=== PATIENT | female | born 1995 | race Caucasian/White ===

== ENCOUNTER 2016-06-07 17:22 | Emergency (ER) | payer MEDICAID, OTHER ==
[~2016-06-07 17:22] MED LIST: CIPR0.3S RIGHT EAR; DRYS20SO TOP; FLUC150T PO; FLUO10TA PO; LEXA10TA PO; SPRI28TA PO; VITA-13 PO; ZITH250T PO
[2016-06-07 18:00] VITALS: BP 119/73; PULSE 71; RESP 18; TEMP 98.7; O2SAT 99
[2016-06-07] MEDS ORDERED: LAMO25 PO (18:57)
[2016-06-07 19:05] LABS: BLOOD, URINE NEG (NEG); COMMENT (UR) CULTURE INDICATED; CULTURE IF INDICATED CULTURE INDICATED; GLUCOSE,URINE NEG (NEG); KETONE, URINE TRACE mg/dL (NEG); MUCUS URINE MANY /lpf (OCC); NITRITE,URINE NEG (NEG); PH, URINE 6.5 (5.0-8.5); SQUAMOUS EPITHELIAL CELL URINE 3 /hpf (0-5); URINE COLOR YELLOW (YELLW/STRAW)
[2016-06-07 19:13] LABS: AUTOMATED NEUTROPHIL # 2.2 TH/MM3 (1.8-7.7); EOSINOPHIL # 0.1 TH/MM3 (0-0.4); EOSINOPHIL % 1.9 % (0.0-4.0); HEMATOCRIT 37.4 % (35.0-46.0); HEMO FLAGS DIFF FINAL; LYMPH % 37.8 % (9.0-44.0); LYMPHOCYTE # 1.7 TH/MM3 (1.0-4.8); MEAN CELL VOLUME 92.5 FL (80.0-100.0); MEAN CORPUSCULAR HEMOGLOBIN 31.1 PG (27.0-34.0); MEAN CORPUSCULAR HGB CONC 33.7 % (32.0-36.0); MONO % 10.2 % (0.0-8.0); NEUT % 49.1 % (16.0-70.0); PLATELET COUNT 221 TH/MM3 (150-450); RED BLOOD COUNT 4.04 MIL/MM3 (4.00-5.30); RED CELL DISTRIBUTION WIDTH 13.1 % (11.6-17.2); WHITE BLOOD COUNT 4.5 TH/MM3 (4.0-11.0)
[2016-06-07 19:28] LABS: ALT (GPT) 15 U/L (9-42); ANION GAP 7 MEQ/L (5-15); AST (GOT) 11 U/L (16-38); BICARBONATE 26.5 MEQ/L (21.0-32.0); BLOOD UREA NITROGEN 8 MG/DL (7-18); CHLORIDE 107 MEQ/L (98-107); GLOMERULAR FILTRATION RATE 76 ML/MIN (>89); POTASSIUM 3.8 MEQ/L (3.5-5.1); SODIUM (NA) 140 MEQ/L (136-145)
[2016-06-07 19:31] LABS: ALKALINE PHOSPHATASE 51 U/L (45-117); TOTAL BILIRUBIN ADULT 0.5 MG/DL (0.2-1.0)
[2016-06-07 19:49] LABS: AMPHETAMINE, URINE NEG (NEG); BARBITURATES, URINE NEG (NEG); COCAINE, URINE NEG (NEG)
[2016-06-07] MEDS ORDERED: CEPH-460 PO (19:59)
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
[2016-06-07 20:45] VITALS: BP 121/84; PULSE 68; RESP 19; O2SAT 100
[2016-06-07] MEDS ORDERED: diphenhydrAMINE HCL 50 MG CAP PO ONE (21:45)
[2016-06-08 02:06] VITALS: BP 104/50; PULSE 62; RESP 18; O2SAT 98
[2016-06-08 06:00] VITALS: BP 99/54; PULSE 56; RESP 17; O2SAT 99
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
== END 2016-06-08 08:10 | disposition home or self-care (01) ==
LOC: NEDAMB 17:22 → NEPJ 06-08 08:10
DX: N39.0 Urinary tract infection, site not specified (principal); R56.9 Unspecified convulsions
CPT/HCPCS: 80053; 80307; 81001; 84703; 85025; 87086; 99284; Q0163

== ENCOUNTER 2017-03-30 19:14 | Emergency (ER) | payer MEDICAID, OTHER ==
[~2017-03-30] VITALS: Ht 172.7 cm; Wt 61.0 kg
[~2017-03-30 19:14] MED LIST changes: +CEPH-460 PO; -CIPR0.3S RIGHT EAR; -DRYS20SO TOP; -FLUC150T PO; -FLUO10TA PO; +LAMO25 PO; -LEXA10TA PO; -SPRI28TA PO; -VITA-13 PO; -ZITH250T PO
[2017-03-30 19:16] VITALS: BP 103/55; PULSE 77; RESP 16; TEMP 97.8; O2SAT 98
--- NOTE | 2017-03-30 21:40 | PD ---
HPI Chief Complaint: Related Problem Time Seen by Provider: 21:28 Travel History International Travel<30 days: No Contact w/Intl Traveler<30days: No Traveled to known affect area: No History of Present Illness HPI 22-year-old white female 1 para 0 with a approximately 8 week . Patient's last menstrual period was 02/05/17. Patient presents with complaints of lower abdominal cramping with brown vaginal discharge. Patient also reports having increased urinary frequency. Patient reports her pain no exacerbating or alleviating factors. A /10. She denies any fever chills, cough, congestion, dysuria, or changes in bowel habit. PFSH Past Medical History Diminished Hearing: No Neurologic: Yes (SEIZURES) Seizures: Yes (Pt denies) Tetanus Vaccination: Unknown Influenza Vaccination: No ?: LMP: 02/05/2017 : 1 Para: 0 Past Surgical History Surgical History: No Previous Surgery Social History Alcohol Use: No Tobacco Use: No Substance Use: No Allergies-Medications (Allergen,Severity, Reaction): Coded Allergies: tramadol (Verified Allergy, Unknown, Hives, 03/30/17) Reported Meds & Prescriptions Reported Meds & Active Scripts Active No Active Prescriptions or Reported Medications Review of Systems Except as stated in HPI: all other systems reviewed are Neg Physical Exam Narrative GENERAL: Well-developed, well-nourished in no apparent distress. Nontoxic appearing. HEAD: Normocephalic, atraumatic. EYES: Pupils equal round and reactive. Extraocular motions intact. No scleral icterus. No injection or drainage. ENT: Nose clear. Throat without erythema, tonsillar hypertrophy or exudate. Uvula midline. Airway patent. NECK: Trachea midline. Supple, nontender, moves head freely. No central bony tenderness or spasm. CARDIOVASCULAR: Regular rate and rhythm without murmurs, gallops, or rubs. RESPIRATORY: Clear to auscultation. Breath sounds equal bilaterally. No wheezes , rales, or rhonchi. GASTROINTESTINAL: Abdomen soft, non-tender, nondistended. No hepato-splenomegaly , or palpable masses. No guarding. EXTREMITIES: No clubbing, cyanosis, or edema. No joint tenderness. BACK: Nontender without deformity. No flank tenderness. NEUROLOGICAL: Awake, alert and oriented x 3 .Cranial nerves grossly intact. Motor and sensory grossly within normal limits. Normal speech. Data Data Last Documented VS Vital Signs Date Time Temp Pulse Resp B/P (MAP) Pulse Ox O2 Delivery O2 Flow Rate FiO2 03/30/17 19:16 97.8 77 16 103/55 (71) 98 Orders Orders Beta Hcg (Quant/Titer) (03/30/17 21:33) Complete Blood Count With Diff (03/30/17 21:33) Basic Metabolic Panel (Bmp) (03/30/17 21:33) Gc And Chlamydia Pcr (03/30/17 21:33) Wet Prep Profile (03/30/17 21:33) Urinalysis - C+S If Indicated (03/30/17 21:33) Iv Access Insert/Monitor (03/30/17 21:33) Azithromycin Powd Pack (Zithromax Powd P (03/30/17 21:45) Ceftriaxone Inj (Rocephin Inj) (03/30/17 21:45) Lidocaine 1% Inj (50 Ml) (Xylocaine 1% I (03/30/17 21:45) Complete Rh (03/30/17 21:33) Ed Urine Pregnancytest Poc (03/30/17 22:19) Us Pelvis (Ques Pr/Ect)W Trans (03/30/17 ) Labs Laboratory Tests Test 03/30/17 22:25 03/30/17 23:15 03/31/17 00:13 Urine Color YELLOW Urine Turbidity CLEAR Urine pH 6.5 Urine Specific [place] 1.028 Urine Protein TRACE mg/dL Urine Glucose (UA) NEG mg/dL Urine Ketones NEG mg/dL Urine Occult Blood NEG Urine Nitrite NEG Urine Bilirubin NEG Urine Urobilinogen 2.0 MG/DL Urine Leukocyte Esterase NEG Urine RBC 1 /hpf Urine WBC 1 /hpf Urine Squamous Epithelial Cells 3 /hpf Microscopic Urinalysis Comment CULT NOT INDICATED White Blood Count 9.5 TH/MM3 Red Blood Count 3.96 MIL/MM3 Hemoglobin 12.5 GM/DL Hematocrit 36.6 % Mean Corpuscular Volume 92.4 FL Mean Corpuscular Hemoglobin 31.6 PG Mean Corpuscular Hemoglobin Concent 34.2 % Red Cell Distribution Width 13.0 % Platelet Count 205 TH/MM3 Mean Platelet Volume 8.3 FL Neutrophils (%) (Auto) 61.1 % Lymphocytes (%) (Auto) 27.0 % Monocytes (%) (Auto) 9.0 % Eosinophils (%) (Auto) 2.4 % Basophils (%) (Auto) 0.5 % Neutrophils # (Auto) 5.8 TH/MM3 Lymphocytes # (Auto) 2.6 TH/MM3 Monocytes # (Auto) 0.9 TH/MM3 Eosinophils # (Auto) 0.2 TH/MM3 Basophils # (Auto) 0.0 TH/MM3 CBC Comment DIFF FINAL Differential Comment Blood Urea Nitrogen 10 MG/DL Creatinine 0.56 MG/DL Random Glucose 86 MG/DL Calcium Level 8.0 MG/DL Sodium Level 137 MEQ/L Potassium Level 3.7 MEQ/L Chloride Level 105 MEQ/L Carbon Dioxide Level 26.9 MEQ/L Anion Gap 5 MEQ/L Estimat Glomerular Filtration Rate 137 ML/MIN Human Chorionic Gonadotropin, Quant 56641 MIU/ML Clue Cells (Wet Prep) NONE SEEN Vaginal Trichomonas (Wet Prep) NONE SEEN Vaginal Yeast (Wet Prep) NONE SEEN MDM Medical Decision Making Medical Screen Exam Complete: Yes Emergency Medical Condition: Yes Medical Record Reviewed: Yes Interpretation(s) Laboratory Tests Test 03/30/17 22:25 03/30/17 23:15 03/31/17 00:13 Urine Color YELLOW Urine Turbidity CLEAR Urine pH 6.5 Urine Specific [place] 1.028 Urine Protein TRACE mg/dL Urine Glucose (UA) NEG mg/dL Urine Ketones NEG mg/dL Urine Occult Blood NEG Urine Nitrite NEG Urine Bilirubin NEG Urine Urobilinogen 2.0 MG/DL Urine Leukocyte Esterase NEG Urine RBC 1 /hpf Urine WBC 1 /hpf Urine Squamous Epithelial Cells 3 /hpf Microscopic Urinalysis Comment CULT NOT INDICATED White Blood Count 9.5 TH/MM3 Red Blood Count 3.96 MIL/MM3 Hemoglobin 12.5 GM/DL Hematocrit 36.6 % Mean Corpuscular Volume 92.4 FL Mean Corpuscular Hemoglobin 31.6 PG Mean Corpuscular Hemoglobin Concent 34.2 % Red Cell Distribution Width 13.0 % Platelet Count 205 TH/MM3 Mean Platelet Volume 8.3 FL Neutrophils (%) (Auto) 61.1 % Lymphocytes (%) (Auto) 27.0 % Monocytes (%) (Auto) 9.0 % Eosinophils (%) (Auto) 2.4 % Basophils (%) (Auto) 0.5 % Neutrophils # (Auto) 5.8 TH/MM3 Lymphocytes # (Auto) 2.6 TH/MM3 Monocytes # (Auto) 0.9 TH/MM3 Eosinophils # (Auto) 0.2 TH/MM3 Basophils # (Auto) 0.0 TH/MM3 CBC Comment DIFF FINAL Differential Comment Blood Urea Nitrogen 10 MG/DL Creatinine 0.56 MG/DL Random Glucose 86 MG/DL Calcium Level 8.0 MG/DL Sodium Level 137 MEQ/L Potassium Level 3.7 MEQ/L Chloride Level 105 MEQ/L Carbon Dioxide Level 26.9 MEQ/L Anion Gap 5 MEQ/L Estimat Glomerular Filtration Rate 137 ML/MIN Human Chorionic Gonadotropin, Quant 38841 MIU/ML Clue Cells (Wet Prep) NONE SEEN Vaginal Trichomonas (Wet Prep) NONE SEEN Vaginal Yeast (Wet Prep) NONE SEEN Last 24 hours Impressions Pelvis Ultrasound 03/30/17 0000 Signed Impressions: Service Date/Time: Thursday, March 30, 2017 22:26 - CONCLUSION: Viable IUP. K. Harjit Johnson MD Differential Diagnosis Differential diagnosis: Pain in , vaginal bleeding and , UTI, vaginitis, STD, ectopic Narrative Course Patient was given Zithromax 1 g p.o., Rocephin 250 mg IM. Patient's ultrasound shows a viable intrauterine 6 weeks. This is pelvic pain in early Procedures Procedure Narrative Pelvic exam in presence of the nurse. GENITOURINARY: Normal external genitalia without lesions or erythema. Vaginal vault without blood or drainage. Cervical os was closed without drainage. Bimanual exam deferred by patient. Diagnosis Primary Impression: Pelvic pain affecting in first trimester, antepartum Referrals: Kelly Ortiz MD Patient Instructions: General Instructions Additional Instructions: Rest. Increase fluids. Follow-up with gynecology in 3-7 days. Return to the ER if any problems. Med/Other Pt SpecificInfo: No Meds Exist/No RX given Scripts No Active Prescriptions or Reported Meds Disposition: DISCHARGE HOME Condition: Stable Miki Johnson Mar 30, 2017 21:40
[2017-03-30] MEDS ORDERED: AZITHROMYCIN PWD FOR SUSP 1 GM PACKET PO ONE (21:45)
[2017-03-30] MEDS ORDERED: LIDOCAINE HCL 1% 50 ML VIAL IM ONE (21:45)
[2017-03-30] MEDS ORDERED: cefTRIAXone 250 MG VIAL IM ONE (21:45)
[2017-03-30 23:45] LABS: BILIRUBIN, URINE NEG (NEG); BLOOD, URINE NEG (NEG); GLUCOSE,URINE NEG (NEG); KETONE, URINE NEG (NEG); NITRITE,URINE NEG (NEG); PH, URINE 6.5 (5.0-8.5); SQUAMOUS EPITHELIAL CELL URINE 3 /hpf (0-5); URINE COLOR YELLOW (YELLW/STRAW); URINE LEUKOCYTE ESTERASE NEG (NEG)
[2017-03-30 23:46] LABS: AUTOMATED NEUTROPHIL # 5.8 TH/MM3 (1.8-7.7); BASOPHIL % 0.5 % (0.0-2.0); EOSINOPHIL # 0.2 TH/MM3 (0-0.4); EOSINOPHIL % 2.4 % (0.0-4.0); HEMATOCRIT 36.6 % (35.0-46.0); HEMOGLOBIN 12.5 GM/DL (11.6-15.3); LYMPHOCYTE # 2.6 TH/MM3 (1.0-4.8); MEAN CELL VOLUME 92.4 FL (80.0-100.0); MEAN CORPUSCULAR HEMOGLOBIN 31.6 PG (27.0-34.0); MEAN CORPUSCULAR HGB CONC 34.2 % (32.0-36.0); MEAN PLATELET VOLUME 8.3 FL (7.0-11.0); MONOCYTE # 0.9 TH/MM3 (0-0.9); NEUT % 61.1 % (16.0-70.0); PLATELET COUNT 205 TH/MM3 (150-450); RED BLOOD COUNT 3.96 MIL/MM3 (4.00-5.30); WHITE BLOOD COUNT 9.5 TH/MM3 (4.0-11.0)
[2017-03-31 00:01] LABS: BICARBONATE 26.9 MEQ/L (21.0-32.0); CREATININE 0.56 MG/DL (0.50-1.00)
--- NOTE | 2017-03-31 01:14 | RADRPT ---
EXAM DATE/TIME: 03/30/2017 22:26 [place] COMPARISON: No previous studies available for comparison. INDICATIONS : Pelvic pain and bleeding with . LAB(S): Beta-hC MEDICAL HISTORY : Seizures. Previous attempt of suicide. SURGICAL HISTORY : ENCOUNTER: Initial ACUITY: 1 week PAIN SCORE: 5/10 LOCATION: Bilateral pelvis MEASUREMENTS: UTERUS: 9.2x 5.6 x 4.7 cm ENDOMETRIAL STRIPE: >20 mm RIGHT OVARY: 3.2 x 2.4 x1.4 cm LEFT OVARY: 3.4 x 1.9 x2.3 cm FREE FLUID: Yes Trace in left adnexa. CROWN RUMP LENGTH: 0.7 cm = 6 WKS 4 DAYS FHR: 76.4 BPM FINDINGS: Intrauterine gestational sac is present with crown-rump length corresponding to 6 weeks and 4 days wi th heart beat at 224 beats per minute. There is a small cyst in the left ovary measures 9 mm wi th a trace of fluid in the left adnexa. CONCLUSION: Viable IUP. K. Harjit Johnson MD on March 31, 2017 at 1:11 Board Certified Radiologist. This report was verified electronically.
[2017-03-31] MEDS ORDERED: METOCLOPRAMIDE HCL 10 MG/2 ML VIAL IM ONE (02:00)
== END 2017-03-31 02:40 | disposition home or self-care (01) ==
LOC: NEPD 19:14
DX: O26.891 Other specified pregnancy related conditions, first trimester (principal); R10.2 Pelvic and perineal pain
CPT/HCPCS: 76700; 76817; 80048; 81001; 84702; 84703; 85025; 86901; 87210; 87491; 87591; 96372; 99284; J0696

== ENCOUNTER 2017-04-09 02:30 | Emergency (ER) | payer MEDICAID ==
[~2017-04-09] VITALS: Ht 172.7 cm; Wt 58.8 kg
[2017-04-09 02:33] VITALS: BP 128/69; PULSE 110; RESP 20; TEMP 97.7
[2017-04-09 02:34] VITALS: BP 128/68; PULSE 109; RESP 20; TEMP 97.7; O2SAT 100
[2017-04-09] MEDS ORDERED: SODIUM CHLOR 0.9% 1000 ML INJ 1,000 ML IV SCH (02:46)
[2017-04-09 02:57] VITALS: BP 133/59; PULSE 89; RESP 20; O2SAT 100
[2017-04-09] MEDS ORDERED: SODIUM CHLORIDE 0.9% FLUSH 10 ML FLUSH IV FLUSH PRN (03:00)
[2017-04-09] MEDS ORDERED: ONDANSETRON HCL 4 MG/2 ML VIAL IVP ONE (03:00)
--- NOTE | 2017-04-09 03:00 | PD ---
HPI Chief Complaint: GI Complaint Time Seen by Provider: 02:46 Travel History International Travel<30 days: No Contact w/Intl Traveler<30days: No Traveled to known affect area: No History of Present Illness HPI 22-year-old female patient who is 2 months , seen a week and a half ago for threatened AB, had a ultrasound showing viable 6 week IUP, here today because of 1 day of nausea, vomiting, diarrhea multiple times. She states that she cannot keep anything down today. She denies any fevers or other issues. She reports that several of her stepchildren also has had some nausea vomiting and diarrhea. She also states that the symptoms seem to have started after she ate ice cream at [facility]. She states that the children also ate at the same place. Modifying Factors: None Associated Signs & Symptoms: Nausea, vomiting, diarrhea Risk Factors: Possible sick contacts, possible bad food exposure PFSH Past Medical History Medical History: Denies Significant Hx Diminished Hearing: No Neurologic: Yes (SEIZURES) Seizures: Yes (Pt denies) Influenza Vaccination: No ?: LMP: 02/2017 : 1 Para: 0 Past Surgical History Surgical History: No Previous Surgery Social History Alcohol Use: No Tobacco Use: Yes (2-3 cigarettes/daily) Substance Use: Yes (Marijuana 2 wks ago) Allergies-Medications (Allergen,Severity, Reaction): Coded Allergies: tramadol (Verified Allergy, Unknown, Hives, 04/09/17) Reported Meds & Prescriptions Reported Meds & Active Scripts Active No Active Prescriptions or Reported Medications Review of Systems Except as stated in HPI: all other systems reviewed are Neg Physical Exam Narrative GENERAL: Well-developed young female patient currently in moderate distress. Awake and oriented 3. SKIN: Focused skin assessment warm/dry. HEAD: Atraumatic. Normocephalic. EYES: Pupils equal and round. No scleral icterus. No injection or drainage. ENT: No nasal bleeding or discharge. Mucous membranes pink and moist. NECK: Trachea midline. No JVD. CARDIOVASCULAR: Regular rate and rhythm. No murmur appreciated. RESPIRATORY: No accessory muscle use. Clear to auscultation. Breath sounds equal bilaterally. GASTROINTESTINAL: Abdomen soft, non-tender, nondistended. Hepatic and splenic margins not palpable. MUSCULOSKELETAL: No obvious deformities. No clubbing. No cyanosis. No edema. NEUROLOGICAL: Awake and alert. No obvious cranial nerve deficits. Motor grossly within normal limits. Normal speech. PSYCHIATRIC: Appropriate mood and affect; insight and judgment normal. Data Data Last Documented VS Vital Signs Date Time Temp Pulse Resp B/P (MAP) Pulse Ox O2 Delivery O2 Flow Rate FiO2 04/09/17 02:57 89 20 133/59 (83) 100 Room Air 04/09/17 02:34 97.7 Orders Orders Beta Hcg (Quant/Titer) (04/09/17 02:46) Complete Blood Count With Diff (04/09/17 02:46) Comprehensive Metabolic Panel (04/09/17 02:46) Lipase (04/09/17 02:46) Urinalysis - C+S If Indicated (04/09/17 02:46) Iv Access Insert/Monitor (04/09/17 02:46) Ecg Monitoring (04/09/17 02:46) Oximetry (04/09/17 02:46) Ondansetron Inj (Zofran Inj) (04/09/17 03:00) Sodium Chlor 0.9% 1000 Ml Inj (Ns 1000 M (04/09/17 02:46) Sodium Chloride 0.9% Flush (Ns Flush) (04/09/17 03:00) Influenzae A/B Antigen (04/09/17 03:21) Labs Laboratory Tests Test 04/09/17 02:40 04/09/17 02:45 Urine Color YELLOW Urine Turbidity CLEAR Urine pH 6.5 Urine Specific [place] GREATER THAN 1.035 Urine Protein 30 mg/dL Urine Glucose (UA) NEG mg/dL Urine Ketones NEG mg/dL Urine Occult Blood TRACE Urine Nitrite NEG Urine Bilirubin NEGATIVE Urine Leukocyte Esterase NEGATIVE Urine RBC 3-5 /hpf Urine WBC 0-2 /hpf Urine Squamous Epithelial Cells 0-5 /hpf Urine Bacteria NONE /hpf Microscopic Urinalysis Comment CULT NOT INDICATED White Blood Count 21.5 TH/MM3 Red Blood Count 4.91 MIL/MM3 Hemoglobin 15.8 GM/DL Hematocrit 45.1 % Mean Corpuscular Volume 91.8 FL Mean Corpuscular Hemoglobin 32.2 PG Mean Corpuscular Hemoglobin Concent 35.0 % Red Cell Distribution Width 12.8 % Platelet Count 249 TH/MM3 Mean Platelet Volume 8.3 FL Neutrophils (%) (Auto) 90.3 % Lymphocytes (%) (Auto) 2.3 % Monocytes (%) (Auto) 4.6 % Eosinophils (%) (Auto) 0.3 % Basophils (%) (Auto) 2.5 % Neutrophils # (Auto) 19.4 TH/MM3 Lymphocytes # (Auto) 0.5 TH/MM3 Monocytes # (Auto) 1.0 TH/MM3 Eosinophils # (Auto) 0.1 TH/MM3 Basophils # (Auto) 0.5 TH/MM3 CBC Comment AUTO DIFF Differential Comment AUTO DIFF CONFIRMED Platelet Estimate NORMAL Platelet Morphology Comment NORMAL Red Cell Morphology Comment NORMAL Blood Urea Nitrogen 7 MG/DL Creatinine 0.66 MG/DL Random Glucose 122 MG/DL Total Protein 7.3 GM/DL Albumin 4.2 GM/DL Calcium Level 8.6 MG/DL Alkaline Phosphatase 55 U/L Aspartate Amino Transf (AST/SGOT) 11 U/L Alanine Aminotransferase (ALT/SGPT) 18 U/L Total Bilirubin 0.5 MG/DL Sodium Level 135 MEQ/L Potassium Level 3.4 MEQ/L Chloride Level 102 MEQ/L Carbon Dioxide Level 22.1 MEQ/L Anion Gap 11 MEQ/L Estimat Glomerular Filtration Rate 113 ML/MIN Lipase 146 U/L Human Chorionic Gonadotropin, Quant 64566 MIU/ML MDM Medical Decision Making Medical Screen Exam Complete: Yes Emergency Medical Condition: Yes Medical Record Reviewed: Yes Interpretation(s) Laboratory Tests Test 04/09/17 02:40 04/09/17 02:45 Urine Specific [place] GREATER THAN 1.035 Urine Protein 30 mg/dL (NEG-TRACE) Urine Occult Blood TRACE (NEG) White Blood Count 21.5 TH/MM3 (4.0-11.0) Hemoglobin 15.8 GM/DL (11.6-15.3) Neutrophils (%) (Auto) 90.3 % (16.0-70.0) Lymphocytes (%) (Auto) 2.3 % (9.0-44.0) Basophils (%) (Auto) 2.5 % (0.0-2.0) Neutrophils # (Auto) 19.4 TH/MM3 (1.8-7.7) Lymphocytes # (Auto) 0.5 TH/MM3 (1.0-4.8) Monocytes # (Auto) 1.0 TH/MM3 (0-0.9) Basophils # (Auto) 0.5 TH/MM3 (0-0.2) Random Glucose 122 MG/DL (74-106) Aspartate Amino Transf (AST/SGOT) 11 U/L (15-37) Sodium Level 135 MEQ/L (136-145) Potassium Level 3.4 MEQ/L (3.5-5.1) Human Chorionic Gonadotropin, Quant 34023 MIU/ML (0-5) Differential Diagnosis Nausea, vomiting, diarrhea: Gastroenteritis versus hyperemesis gravidarum versus dehydration versus metabolic issues Narrative Course Transabdominal ultrasound shows IUP with good heart tones. Her lab work shows significant leukocytosis. Her abdomen is otherwise fairly benign. She was given IV fluids and Zofran in the ER and on reevaluation at 4 AM is feeling much improved, is no longer vomiting. She has several sick contacts as well and at this point, I suspected that this is a gastroenteritis although a foodborne gastroenteritis cannot be ruled out. I have discussed the case with [employer] ER physician manufacturing storeperson at and she states that the patient likely has a reactive leukocytosis. She is afebrile. She would not recommend any antibiotic at this time but would recommend p.o. fluid hydration and Zofran. Follow-up with [employer] [facility]. Return for any worsening in symptoms as needed. The plan has been discussed with her and she states understanding. Procedures Procedure Narrative Transabdominal ultrasound done by me shows IUP with good heart tones of 150. Diagnosis Primary Impression: Gastroenteritis Additional Impression: Leukocytosis Additional Instructions: Follow-up with [employer] this coming week regarding this problem. He may need to get your blood work rechecked to make sure your white blood cell counts are coming back to normal. You need to return if vomiting worsens, diarrhea worsens , your any fevers or any having worsening in pain or new symptoms. Med/Other Pt SpecificInfo: Prescription(s) given Scripts Ondansetron Odt (Zofran Odt) 4 Mg Tab 4 MG SL Q6HR Y for Nausea/Vomiting, #7 TAB 0 Refills Prov: Franko Wright MD 04/09/17 Disposition: DISCHARGE HOME Condition: Stable Franko Wright MD Apr 09, 2017 03:00
[2017-04-09 03:08] LABS: AUTOMATED NEUTROPHIL # 19.4 TH/MM3 (1.8-7.7); BASOPHIL # 0.5 TH/MM3 (0-0.2); BASOPHIL % 2.5 % (0.0-2.0); EOSINOPHIL # 0.1 TH/MM3 (0-0.4); EOSINOPHIL % 0.3 % (0.0-4.0); HEMATOCRIT 45.1 % (35.0-46.0); HEMOGLOBIN 15.8 GM/DL (11.6-15.3); LYMPH % 2.3 % (9.0-44.0); LYMPHOCYTE # 0.5 TH/MM3 (1.0-4.8); MEAN CELL VOLUME 91.8 FL (80.0-100.0); MEAN CORPUSCULAR HEMOGLOBIN 32.2 PG (27.0-34.0); MEAN PLATELET VOLUME 8.3 FL (7.0-11.0); MONO % 4.6 % (0.0-8.0); NEUT % 90.3 % (16.0-70.0); PLATELET COUNT 249 TH/MM3 (150-450); RED BLOOD COUNT 4.91 MIL/MM3 (4.00-5.30); RED CELL DISTRIBUTION WIDTH 12.8 % (11.6-17.2); WHITE BLOOD COUNT 21.5 TH/MM3 (4.0-11.0)
[2017-04-09 03:16] LABS: BILIRUBIN, URINE NEGATIVE (NEG); BLOOD, URINE TRACE (NEG); GLUCOSE,URINE NEG (NEG); KETONE, URINE NEG (NEG); NITRITE,URINE NEG (NEG); PH, URINE 6.5 (5.0-8.5); URINE COLOR YELLOW (YELLW/STRAW); URINE LEUKOCYTE ESTERASE NEGATIVE (NEG)
[2017-04-09 03:17] LABS: SQUAMOUS EPITHELIAL CELL URINE 0-5 /hpf (0-5); WBC, URINE 0-2 /hpf (0-5)
[2017-04-09 03:18] LABS: CHLORIDE 102 MEQ/L (98-107); SODIUM (NA) 135 MEQ/L (136-145)
[2017-04-09 03:21] LABS: CALCIUM 8.6 MG/DL (8.5-10.1)
[2017-04-09 03:22] LABS: ALBUMIN 4.2 GM/DL (3.4-5.0); BICARBONATE 22.1 MEQ/L (21.0-32.0); BLOOD UREA NITROGEN 7 MG/DL (7-18); GLUCOSE,RANDOM 122 MG/DL (74-106)
[2017-04-09 03:25] LABS: ALT (GPT) 18 U/L (10-53); AST (GOT) 11 U/L (15-37); CREATININE 0.66 MG/DL (0.50-1.00); GLOMERULAR FILTRATION RATE 113 ML/MIN (>89)
[2017-04-09 03:26] LABS: TOTAL BILIRUBIN ADULT 0.5 MG/DL (0.2-1.0); TOTAL PROTEIN 7.3 GM/DL (6.4-8.2)
[2017-04-09 03:27] LABS: ALKALINE PHOSPHATASE 55 U/L (45-117)
[2017-04-09] MEDS ORDERED: ZOFR4TAB3 SL (04:03)
[2017-04-09 04:15] VITALS: BP 119/63; PULSE 103; RESP 18; O2SAT 99
[2017-04-09 05:56] VITALS: BP 120/75; PULSE 95; RESP 18; O2SAT 100
--- NOTE | 2017-04-09 06:09 | RADRPT ---
EXAM DATE/TIME: 04/09/2017 04:47 [facility] COMPARISON: No previous studies available for comparison. INDICATIONS : Right lower quadrant pain. MEDICAL HISTORY : Seizures. SURGICAL HISTORY : None. ENCOUNTER: Initial ACUITY: 1 day PAIN SCORE: 2/10 LOCATION: Bilateral lower quadrant AREA EVALUATED: Bilateral lower quadrant. FINDINGS: There are prominent peristalsing bowel loops. However, an appendix is not identified. CONCLUSION: 1. Prominent peristalsing bowel loops without identifiable appendix. Please note that this does not d efinitively exclude appendicitis. Patrick Elaine MD on April 09, 2017 at 6:07 Board Certified Radiologist. This report was verified electronically.
--- NOTE | 2017-04-09 06:12 | RADRPT ---
EXAM DATE/TIME: 04/09/2017 04:51 [facility] COMPARISON: No previous studies available for comparison. INDICATIONS : Pelvic pain with . LAB(S): Beta-hC,081 MEDICAL HISTORY : . Seizures. SURGICAL HISTORY : None. ENCOUNTER: Subsequent ACUITY: 1 week PAIN SCORE: 2/10 LOCATION: Bilateral pelvis MEASUREMENTS: UTERUS: 10.4 x 5.8 x 6.7 cm ENDOMETRIAL STRIPE: 17 mm RIGHT OVARY: 3.0 x 2.0 x 2.3 cm LEFT OVARY: 3.7 x 2.7 x 2.3 cm FREE FLUID: Yes Rigth adnexa and cul-de-sac CROWN RUMP LENGTH: 0.99 cn = 7 WKS 1 DAYS FHR: 159 BPM FINDINGS: UTERUS: There is a single intrauterine gestational sac with pole and yolk sac. This corresponds to 7 we eks 1 day. cardiac activity is noted at 159 bpm. Small 7 x 11 x 7 mm hypoechoic region adjacent to the gestational sac may reflect a small subchorionic hemorrhage. RIGHT OVARY: Ovary contains no mass or significant cystic lesion. LEFT OVARY: Probable corpus luteal cyst. MISCELLANEOUS: Small amount of free fluid. CONCLUSION: 1. Single intrauterine gestational sac corresponding to 7 weeks 1 day. cardiac activity at 159 bpm. 2. Probable small 11 mm subchorionic hemorrhage. 3. Trace free fluid. Partick Elaine MD on April 09, 2017 at 6:09 Board Certified Radiologist. This report was verified electronically.
[2017-04-09 06:29] VITALS: BP 100/52; TEMP 98.4
[2017-04-09] MEDS ORDERED: ONDANSETRON ODT 4 MG TAB PO ONE (06:45)
== END 2017-04-09 06:39 | disposition home or self-care (01) ==
LOC: PHED 02:30
DX: O99.611 Diseases of the digestive system complicating pregnancy, first trimester (principal); K52.9 Noninfective gastroenteritis and colitis, unspecified; O99.331 Smoking (tobacco) complicating pregnancy, first trimester; F17.210 Nicotine dependence, cigarettes, uncomplicated; O99.321 Drug use complicating pregnancy, first trimester; F12.90 Cannabis use, unspecified, uncomplicated; Z3A.01 Less than 8 weeks gestation of pregnancy
CPT/HCPCS: 76700; 76705; 80053; 81001; 83690; 84702; 85025; 87804; 96361; 96374; 99284; J2405; J7030